=== PATIENT | female | born 1985 | race African-American/Black ===

== ENCOUNTER 2017-04-20 09:23 | Emergency (ER) | payer OTHER ==
[2017-04-20] MEDS ORDERED: Ondansetron HCl/PF 4 MG/2 ML Vial ONE (10:05)
== END 2017-04-20 10:34 | disposition home or self-care (01) ==
LOC: ERS 09:23
DX: R11.2 Nausea with vomiting, unspecified (principal); R10.9 Unspecified abdominal pain
CPT/HCPCS: 99283; J2405

== ENCOUNTER 2017-05-10 08:24 | Emergency (ER) | payer OTHER | END 2017-05-10 09:07 | disposition home or self-care (01) | LOC: ERS 08:24 | DX: R11.0 Nausea (principal); R51 Headache | CPT/HCPCS: 99283 ==

== ENCOUNTER 2017-05-11 08:54 | Emergency (ER) | payer OTHER, SELFPAY ==
[2017-05-11] MEDS ORDERED: Ondansetron HCl/PF 4 MG/2 ML Vial ONE (10:21)
[2017-05-11 10:40] LABS: #Eosinphils 0.1 thou/uL (0.0-0.7); #Lymphocytes 1.8 thou/uL (1.20-3.40); #Monocytes 0.5 thou/uL (0.11-0.59); %Basophils 0.1 % (0.0-1.0); %Eosinophils 0.6 % (0.0-10.0); %Lymphocytes 17.6 % (21.0-51.0); Hematocrit 43.2 % (36.0-47.0); Mean Platelet Volume 6.6 fL (7.4-10.4); White Blood Cell (WBC) Count 10.4 thou/uL (4.8-10.8)
[2017-05-11 10:54] LABS: ALT (SGPT) 14 U/L (8-55); AST (SGOT) 13 U/L (5-34); Alkaline Phosphatase 66 U/L (40-150); Anion Gap 14 mmol/L (10-20); BUN (Urea Nitrogen) 9 mg/dL (7.0-18.7); Bilirubin, Total 0.6 mg/dL (0.2-1.2); Calc. Creatinine Clearance 0 mL/min (70-130); Calcium 9.7 mg/dL (7.8-10.44); Carbon Dioxide 23 mmol/L (22-29); Chloride 104 mmol/L (98-107); Estimated GFR-MDRD Greater than 90; Globulin 3.9 g/dL (2.4-3.5); Lipase 38 U/L (8-78)
[2017-05-11 11:42] LABS: Bilirubin Negative (Negative); Blood, Urine Negative (Negative); Glucose, Urine (Dipstick) Negative (Negative); Ketone, Urine 15 mg/dL (Negative); Nitrite Negative (Negative); Protein, Urine (Dipstick) Negative (Neg-Trace)
== END 2017-05-11 13:45 | disposition home or self-care (01) ==
LOC: EDUNIT# 08:54 → ERS 08:54
DX: R11.2 Nausea with vomiting, unspecified (principal); E03.9 Hypothyroidism, unspecified
CPT/HCPCS: 80053; 81003; 83690; 84703; 85025; 96361; 96374; J2405

== ENCOUNTER 2017-05-25 11:59 | Emergency (ER) | payer OTHER, SELFPAY ==
[2017-05-25] MEDS ORDERED: Ondansetron ODT 4 MG TAB ONE (12:36)
[2017-05-25] MEDS ORDERED: Acetaminophen 325 MG TAB ONE (12:36)
== END 2017-05-25 12:43 | disposition home or self-care (01) ==
LOC: ERS 11:59
DX: R11.2 Nausea with vomiting, unspecified (principal)
CPT/HCPCS: 99283; Q0162

== ENCOUNTER 2017-05-30 10:13 | Emergency (ER) | payer SELFPAY | END 2017-05-30 10:34 | disposition left against medical advice (07) | LOC: ERS 10:13 | DX: Z53.21 Procedure and treatment not carried out due to patient leaving prior to being seen by health care provider (principal) ==

== ENCOUNTER 2017-06-15 08:47 | Emergency (ER) | payer OTHER, SELFPAY ==
[2017-06-15] MEDS ORDERED: Ondansetron ODT 4 MG TAB ONE (09:47)
== END 2017-06-15 10:10 | disposition home or self-care (01) ==
LOC: ERS 08:47
DX: R11.0 Nausea (principal); R51 Headache
CPT/HCPCS: 99283; Q0162

== ENCOUNTER 2017-07-04 10:11 | Emergency (ER) | payer OTHER | END 2017-07-04 11:17 | disposition home or self-care (01) | LOC: ERS 10:11 | DX: J11.1 Influenza due to unidentified influenza virus with other respiratory manifestations (principal) | CPT/HCPCS: 99283 ==

== ENCOUNTER 2017-07-04 15:43 | Emergency (ER) | payer OTHER ==
[2017-07-05 11:02] LABS: Anion Gap 11 mmol/L (-14-95); Lactate 1.26 mmol/L (0.50-2.20); POC Est. GFR-MDRD-African-Amer Greater than 60; POC Estimated GFR-MDRD Greater than 60; T. Carbon Dioxide 27.2 mmol/L (1.0-85.0); pH (Venous) 7.363 (7.35-7.45)
== END 2017-07-04 17:15 ==
LOC: ERS 15:43
DX: B34.9 Viral infection, unspecified (principal); R11.2 Nausea with vomiting, unspecified
CPT/HCPCS: 82330; 82435; 82565; 82803; 82947; 83605; 84132; 84295; 85014; 99284

== ENCOUNTER 2017-07-15 18:11 | Emergency (ER) | payer OTHER ==
[2017-07-15] MEDS ORDERED: Ibuprofen 200 MG TAB ONE (19:40)
[2017-07-15] MEDS ORDERED: Ibuprofen 100 MG/5 ML UDCUP ONE (19:41)
== END 2017-07-15 19:45 | disposition home or self-care (01) ==
LOC: ERS 18:11
DX: R53.1 Weakness (principal)

== ENCOUNTER 2017-07-16 16:52 | Emergency (ER) | payer OTHER ==
[2017-07-16 17:55] LABS: Bilirubin Negative (Negative); Blood, Urine Large (Negative); Clarity CLOUDY (Clear); Glucose, Urine (Dipstick) Negative (Negative); Leukocyte Trace (Negative); Nitrite Negative (Negative); Pregnancy Test - Urine (BHCG) Negative (Negative); Pregu Control Background? CLEAR/WHITE (CLR/WHITE); Pregu Control Bar Appear? YES (CONTROL BAR); Protein, Urine (Dipstick) Negative (Neg-Trace); Specific Gravity 1.033 (1.002-1.036); Specific Gravity, Urine 1.033 (1.002-1.036); Urobilinogen 0.2 mg/dL (0.2-1.0); pH, Urine 5.5 (5.0-9.0)
[2017-07-16 18:00] LABS: Bacteria/HPF 1+ HPF (None Seen); Hyaline Casts/LPF 4-6 HYALINE CAST LPF (0-3 Hyaline); Pathc Cast-AUWi Flag 0.94 (0-2.49); Yeast-AUWi Flag 125.7 (0-25.0)
[2017-07-16 18:09] LABS: Yeast-All Forms None Seen HPF (None Seen)
== END 2017-07-16 18:46 | disposition left against medical advice (07) ==
LOC: ERS 16:52
DX: Z53.21 Procedure and treatment not carried out due to patient leaving prior to being seen by health care provider (principal)
CPT/HCPCS: 81003; 81015; 81025; 99283

== ENCOUNTER 2017-07-21 12:29 | Emergency (ER) | payer OTHER ==
[2017-07-21] MEDS ORDERED: Ibuprofen 200 MG TAB ONE (12:57)
== END 2017-07-21 13:08 | disposition home or self-care (01) ==
LOC: ERS 12:29
DX: M79.621 Pain in right upper arm (principal); M79.662 Pain in left lower leg
CPT/HCPCS: 99283

== ENCOUNTER 2017-07-25 17:05 | Emergency (ER) | payer OTHER | END 2017-07-25 18:38 | disposition left against medical advice (07) | LOC: ERS 17:05 | DX: Z53.21 Procedure and treatment not carried out due to patient leaving prior to being seen by health care provider (principal) ==

== ENCOUNTER 2017-10-13 11:46 | Emergency (ER) | payer OTHER ==
[2017-10-13] MEDS ORDERED: Acetaminophen 500 MG TAB ONE (13:01)
[2017-10-13] MEDS ORDERED: Ondansetron ODT 4 MG TAB ONE (13:01)
[2017-10-13] MEDS ORDERED: Ketorolac Tromethamine 30 MG/ML VIAL ONE (13:01)
== END 2017-10-13 13:36 | disposition home or self-care (01) ==
LOC: ERS 11:46
DX: R51 Headache (principal)
CPT/HCPCS: 96372; J1885; Q0162

== ENCOUNTER 2017-10-19 11:23 | Emergency (ER) | payer OTHER ==
[2017-10-19] MEDS ORDERED: Ondansetron ODT 4 MG TAB ONE (12:09)
[2017-10-19] MEDS ORDERED: Ketorolac Tromethamine 30 MG/ML VIAL ONE (12:09)
== END 2017-10-19 12:42 | disposition home or self-care (01) ==
LOC: ERS 11:23
DX: R51 Headache (principal); F17.200 Nicotine dependence, unspecified, uncomplicated
CPT/HCPCS: 96372; J1885; Q0162

== ENCOUNTER 2017-10-24 08:47 | Emergency (ER) | payer OTHER ==
[2017-10-24] MEDS ORDERED: Dexamethasone 4 MG TAB ONE (09:15)
[2017-10-24] MEDS ORDERED: Dexamethasone 4 mg/ml Vial ONE (09:17)
== END 2017-10-24 09:37 | disposition home or self-care (01) ==
LOC: ERS 08:47
DX: J02.9 Acute pharyngitis, unspecified (principal); F17.200 Nicotine dependence, unspecified, uncomplicated
CPT/HCPCS: 99283; J1100; J8540

== ENCOUNTER 2017-11-01 11:24 | Emergency (ER) | payer OTHER ==
[2017-11-01 11:59] LABS: #Eosinphils 0.2 thou/uL (0.0-0.7); #Lymphocytes 2.7 thou/uL (1.20-3.40); #Monocytes 0.6 thou/uL (0.11-0.59); #Neutrophils 4.3 thou/uL (1.40-6.50); %Basophils 0.3 % (0.0-1.0); %Monocytes 7.2 % (0.0-10.0); %Neutrophils 55.5 % (42.0-75.0); Hemoglobin 13.3 g/dL (12.0-16.0); Mean Corpuscular HGB CONC 31.8 g/dL (32.0-36.0); Mean Corpuscular Hemoglobin 23.6 pg (27.0-31.0); Mean Corpuscular Volume 74.1 fl (81.0-99.0); Platelet Count 562 thou/uL (130-400); RBC Distribution Width 15.5 % (11.5-14.5); Red Blood Cell (RBC) Count 5.63 mill/uL (4.20-5.40); White Blood Cell (WBC) Count 7.8 thou/uL (4.8-10.8)
[2017-11-01 12:15] LABS: Bilirubin Small (Negative); Blood, Urine Large (Negative); Clarity CLOUDY (Clear); Glucose, Urine (Dipstick) Negative (Negative); Leukocyte Small (Negative); Nitrite Negative (Negative); Protein, Urine (Dipstick) 30 mg/dL (Neg-Trace); Urobilinogen 0.2 mg/dL (0.2-1.0); pH, Urine 5.5 (5.0-9.0)
[2017-11-01 12:16] LABS: Hypochromia SLIGHT = 6-15 cells (100X) (0-5/hpf); MDiff Complete? YES; Microcytosis MODERATE=15-30 cells (100X) (0-5/hpf); Polychromasia SLIGHT = 2-3 cells (100X) (0-2/hpf)
[2017-11-01 12:19] LABS: Pregnancy Test - Urine (BHCG) Negative (Negative); Pregu Control Background? CLEAR/WHITE (CLR/WHITE); Pregu Control Bar Appear? YES (CONTROL BAR)
[2017-11-01 12:29] LABS: Bacteria/HPF Rare-Few HPF (None Seen); Hyaline Casts/LPF 0-3 HYALINE CAST LPF (0-3 Hyaline); Pathc Cast-AUWi Flag 0.29 (0-2.49); RBC/HPF GREATER THAN 50-TNTC HPF (0-3)
[2017-11-01 12:59] LABS: ALT (SGPT) 19 U/L (8-55); AST (SGOT) 14 U/L (5-34); Albumin 4.2 g/dL (3.5-5.0); Alkaline Phosphatase 62 U/L (40-150); Anion Gap 12 mmol/L (10-20); BUN (Urea Nitrogen) 9 mg/dL (7.0-18.7); Bilirubin, Total 0.3 mg/dL (0.2-1.2); Calc. Creatinine Clearance 0 mL/min (70-130); Calcium 9.5 mg/dL (7.8-10.44); Carbon Dioxide 25 mmol/L (22-29); Chloride 106 mmol/L (98-107); Estimated GFR-MDRD Greater than 90; Globulin 3.8 g/dL (2.4-3.5); Glucose 79 mg/dL (70-105); Potassium 3.8 mmol/L (3.5-5.1); Sodium 139 mmol/L (136-145)
== END 2017-11-01 12:57 | disposition home or self-care (01) ==
LOC: ERS 11:24
DX: N39.0 Urinary tract infection, site not specified (principal); F17.210 Nicotine dependence, cigarettes, uncomplicated
CPT/HCPCS: 36415; 80053; 81003; 81015; 81025; 85025; 87086

== ENCOUNTER 2017-11-01 19:27 | Emergency (ER) | payer OTHER ==
[2017-11-01 19:58] LABS: Bilirubin Negative (Negative); Blood, Urine Large (Negative); Clarity TURBID (Clear); Glucose, Urine (Dipstick) Negative (Negative); Leukocyte Small (Negative); Nitrite Negative (Negative); Protein, Urine (Dipstick) 30 mg/dL (Neg-Trace); Specific Gravity, Urine 1.028 (1.002-1.036)
[2017-11-01 19:59] LABS: Bacteria/HPF None Seen HPF (None Seen); Hyaline Casts/LPF 7-10 HYALINE CAST LPF (0-3 Hyaline); RBC/HPF GREATER THAN 50-TNTC HPF (0-3)
[2017-11-01] MEDS ORDERED: Ibuprofen 100 MG/5 ML UDCUP ONE (20:01)
[2017-11-01 20:06] LABS: Pathc Cast-AUWi Flag 2.71 (0-2.49)
[2017-11-01 20:21] LABS: Other Casts/LPF None Seen LPF (0-3 Hyaline)
== END 2017-11-01 20:00 | disposition home or self-care (01) ==
LOC: ERS 19:27
DX: N94.6 Dysmenorrhea, unspecified (principal)
CPT/HCPCS: 36415; 80053; 81003; 81015; 81025; 85025; 87086; 99284

== ENCOUNTER 2017-11-26 13:33 | Emergency (ER) | payer OTHER ==
[2017-11-26 14:10] LABS: #Eosinphils 0.2 thou/uL (0.0-0.7); #Lymphocytes 2.9 thou/uL (1.20-3.40); #Monocytes 0.6 thou/uL (0.11-0.59); #Neutrophils 5.5 thou/uL (1.40-6.50); %Basophils 0.3 % (0.0-1.0); %Eosinophils 2.1 % (0.0-10.0); %Lymphocytes 31.9 % (21.0-51.0); %Monocytes 6.4 % (0.0-10.0); %Neutrophils 59.3 % (42.0-75.0); Hemoglobin 12.6 g/dL (12.0-16.0); Mean Corpuscular HGB CONC 32.5 g/dL (32.0-36.0); Mean Corpuscular Volume 73.9 fl (81.0-99.0); Mean Platelet Volume 6.7 fL (7.4-10.4); Platelet Count 563 thou/uL (130-400); RBC Distribution Width 15.4 % (11.5-14.5); Red Blood Cell (RBC) Count 5.25 mill/uL (4.20-5.40); White Blood Cell (WBC) Count 9.2 thou/uL (4.8-10.8)
[2017-11-26 14:13] LABS: Bilirubin Negative (Negative); Blood, Urine Large (Negative); Clarity CLOUDY (Clear); Glucose, Urine (Dipstick) Negative (Negative); Leukocyte Moderate (Negative); Nitrite Negative (Negative); Protein, Urine (Dipstick) Trace mg/dL (Neg-Trace); Specific Gravity, Urine 1.024 (1.002-1.036)
[2017-11-26 14:16] LABS: Pregnancy Test - Urine (BHCG) Negative (Negative); Pregu Control Background? CLEAR/WHITE (CLR/WHITE); Pregu Control Bar Appear? YES (CONTROL BAR); Specific Gravity 1.024 (1.002-1.036)
[2017-11-26 14:23] LABS: RBC/HPF GREATER THAN 50-TNTC HPF (0-3)
[2017-11-26 14:24] LABS: Bacteria/HPF None Seen HPF (None Seen); Hyaline Casts/LPF NONE SEEN LPF (0-3 Hyaline); Squamous Epithelial 0-3 HPF (0-3)
== END 2017-11-26 14:55 | disposition home or self-care (01) ==
LOC: ERS 13:33
DX: N93.9 Abnormal uterine and vaginal bleeding, unspecified (principal)
CPT/HCPCS: 36415; 81003; 81015; 81025; 85025; 99283

== ENCOUNTER 2017-12-07 17:31 | Emergency (ER) | payer OTHER ==
[2017-12-07 19:40] LABS: Pregnancy Test - Urine (BHCG) Negative (Negative); Pregu Control Background? CLEAR/WHITE (CLR/WHITE); Pregu Control Bar Appear? YES (CONTROL BAR); Specific Gravity 1.029 (1.002-1.036)
[2017-12-07] MEDS ORDERED: Ketorolac Tromethamine 60 MG/2 ML VIAL ONE (20:08)
== END 2017-12-07 20:21 | disposition home or self-care (01) ==
LOC: ERS 17:31
DX: J30.9 Allergic rhinitis, unspecified (principal)
CPT/HCPCS: 81025; 96372; J1885

== ENCOUNTER 2017-12-13 11:21 | Emergency (ER) | payer OTHER ==
[2017-12-13] MEDS ORDERED: Ketorolac Tromethamine 60 MG/2 ML VIAL ONE (11:43)
== END 2017-12-13 12:52 | disposition home or self-care (01) ==
LOC: ERS 11:21
DX: R51 Headache (principal)
CPT/HCPCS: 96372; J1885

== ENCOUNTER 2017-12-21 19:26 | Emergency (ER) | payer OTHER ==
[2017-12-21] MEDS ORDERED: Ketorolac Tromethamine 30 MG/ML VIAL ONE (19:40)
== END 2017-12-21 19:47 | disposition home or self-care (01) ==
LOC: ERS 19:26
DX: R11.2 Nausea with vomiting, unspecified (principal)
CPT/HCPCS: 96374; J1885

== ENCOUNTER 2017-12-31 18:10 | Emergency (ER) | payer OTHER ==
[2017-12-31 19:05] LABS: Bilirubin Negative (Negative); Blood, Urine Negative (Negative); Clarity CLOUDY (Clear); Glucose, Urine (Dipstick) Negative (Negative); Leukocyte Negative (Negative); Nitrite Negative (Negative); Protein, Urine (Dipstick) Negative (Neg-Trace); Specific Gravity, Urine 1.028 (1.002-1.036); pH, Urine 5.5 (5.0-9.0)
[2017-12-31 19:18] LABS: Pregnancy Test - Urine (BHCG) Negative (Negative); Pregu Control Background? CLEAR/WHITE (CLR/WHITE); Pregu Control Bar Appear? YES (CONTROL BAR); Specific Gravity 1.028 (1.002-1.036)
[2017-12-31] MEDS ORDERED: Ketorolac Tromethamine 60 MG/2 ML VIAL ONE (19:38)
== END 2017-12-31 19:59 | disposition home or self-care (01) ==
LOC: ERS 18:10
DX: R51 Headache (principal); R11.0 Nausea; E03.9 Hypothyroidism, unspecified
CPT/HCPCS: 81003; 81025; 96372; J1885

== ENCOUNTER 2018-01-09 20:57 | Emergency (ER) ==
[2018-01-09] MEDS ORDERED: Ketorolac Tromethamine 60 MG/2 ML VIAL ONE (21:07)
== END 2018-01-09 21:20 | disposition home or self-care (01) ==
LOC: ERS 20:57 → MERGE 20:57 → ERS 21:20
DX: G89.29 Other chronic pain (principal); M25.562 Pain in left knee
CPT/HCPCS: 96372; J1885

== ENCOUNTER 2018-01-17 19:46 | Emergency (ER) | payer OTHER ==
[2018-01-17] MEDS ORDERED: Ondansetron HCl/PF 4 MG/2 ML Vial ONE (19:57)
[2018-01-17] MEDS ORDERED: Ketorolac Tromethamine 30 MG/ML VIAL ONE (19:57)
[2018-01-17] MEDS ORDERED: Acetaminophen 500 MG TAB ONE (20:01)
== END 2018-01-17 20:14 | disposition home or self-care (01) ==
LOC: ERS 19:46
DX: R51 Headache (principal); E03.9 Hypothyroidism, unspecified
CPT/HCPCS: 96374; 96375; J1885; J2405

== ENCOUNTER 2018-03-25 12:46 | Emergency (ER) | payer OTHER ==
[2018-03-25] MEDS ORDERED: Ketorolac Tromethamine 30 MG/ML VIAL ONE (14:21)
== END 2018-03-25 14:28 | disposition home or self-care (01) ==
LOC: ERS 12:46
DX: G89.29 Other chronic pain (principal); R51 Headache; E03.9 Hypothyroidism, unspecified
CPT/HCPCS: 96372; J1885

== ENCOUNTER 2018-05-09 00:22 | Emergency (ER) | payer OTHER ==
[2018-05-09] MEDS ORDERED: Acetaminophen 500 MG TAB ONE (01:00)
[2018-05-09] MEDS ORDERED: Ketorolac Tromethamine 30 MG/ML VIAL ONE (01:00)
--- NOTE | 2018-05-09 09:11 | RAD ---
FOUR VIEWS OF THE SKULL: COMPARISON: None. HISTORY: Fall with head trauma and head pain. FINDINGS: Four views of the skull show no evidence of a displaced calvarial fracture. The visualized paranasal sinuses are well aerated. The mastoid air cells are well aerated. IMPRESSION: No evidence of calvarial fracture. POS: [facility]
== END 2018-05-09 01:20 | disposition home or self-care (01) ==
LOC: ERS 00:22
DX: S09.90XA Unspecified injury of head, initial encounter (principal); E03.9 Hypothyroidism, unspecified; W20.8XXA Other cause of strike by thrown, projected or falling object, initial encounter
CPT/HCPCS: 70260; 96372; J1885

== ENCOUNTER 2018-05-27 16:04 | Emergency (ER) | payer OTHER | END 2018-05-27 18:40 | disposition home or self-care (01) | LOC: SCSER 16:04 | DX: K52.9 Noninfective gastroenteritis and colitis, unspecified (principal); E03.9 Hypothyroidism, unspecified | CPT/HCPCS: 99283 ==

== ENCOUNTER 2018-06-09 20:24 | Emergency (ER) | payer OTHER ==
[2018-06-09 21:33] LABS: #Eosinphils 0.3 thou/uL (0.0-0.7); #Lymphocytes 3.4 thou/uL (1.20-3.40); #Monocytes 0.6 thou/uL (0.11-0.59); #Neutrophils 4.9 thou/uL (1.40-6.50); %Basophils 0.2 % (0.0-1.0); %Eosinophils 2.7 % (0.0-10.0); %Lymphocytes 36.8 % (21.0-51.0); %Monocytes 6.1 % (0.0-10.0); %Neutrophils 54.2 % (42.0-75.0); Hemoglobin 12.9 g/dL (12.0-16.0); Mean Corpuscular HGB CONC 32.3 g/dL (32.0-36.0); Mean Corpuscular Hemoglobin 23.8 pg (27.0-31.0); Mean Corpuscular Volume 73.7 fL (78.0-98.0); Mean Platelet Volume 7.1 fL (7.4-10.4); Platelet Count 588 thou/uL (130-400); RBC Distribution Width 15.7 % (11.5-14.5); Red Blood Cell (RBC) Count 5.44 mill/uL (4.20-5.40); White Blood Cell (WBC) Count 9.1 thou/uL (4.8-10.8)
[2018-06-09 21:35] LABS: BHCG - Serum Negative (NEGATIVE); Pregs Control Background? CLEAR/WHITE (CLR/WHITE); Pregs Control Bar Appear? YES (CONTROL BAR)
--- NOTE | 2018-06-09 22:37 | ULT ---
PELVIC ULTRASOUND: 06/09/18 COMPARISON: None. HISTORY: Pelvic pain and cramping. Vaginal bleeding. TECHNIQUE: Multiplanar fraser scale and color doppler images were obtained in a transabdominal pelvic ultrasound. Spectral analysis of the doppler waveforms of the ovaries were performed. FINDINGS: The uterus is normal size and appearance without focal abnormality. The endometrial stripe is normal measuring 6 mm. No free fluid is seen in the pelvis. Both ovaries are normal in size and appearance and demonstrate n ormal internal flow. IMPRESSION: Unremarkable pelvic ultrasound. POS: [facility]
[2018-06-11 21:13] LABS: Chlamydia by PCR Not Detected (NotDetected); GC by PCR Not Detected (NotDetected)
== END 2018-06-09 22:57 | disposition home or self-care (01) ==
LOC: ERS 20:24
DX: N93.9 Abnormal uterine and vaginal bleeding, unspecified (principal); E03.9 Hypothyroidism, unspecified; I50.9 Heart failure, unspecified
CPT/HCPCS: 36415; 76856; 84703; 85025; 87480; 87491; 87510; 87591; 87660; 93976; 99284

== ENCOUNTER 2018-07-07 15:06 | Emergency (ER) | payer OTHER | END 2018-07-07 15:55 | disposition home or self-care (01) | LOC: ERS 15:06 | DX: R19.7 Diarrhea, unspecified (principal); E03.9 Hypothyroidism, unspecified; D50.9 Iron deficiency anemia, unspecified | CPT/HCPCS: 99284 ==

== ENCOUNTER 2018-07-08 21:20 | Emergency (ER) | payer OTHER | END 2018-07-08 21:38 | disposition home or self-care (01) | LOC: ERS 21:20 | DX: K03.81 Cracked tooth (principal); E03.9 Hypothyroidism, unspecified; D50.0 Iron deficiency anemia secondary to blood loss (chronic); Z79.899 Other long term (current) drug therapy | CPT/HCPCS: 99283 ==

== ENCOUNTER 2018-07-13 14:27 | Emergency (ER) | payer OTHER | END 2018-07-13 15:02 | disposition home or self-care (01) | LOC: ERS 14:27 | DX: R10.9 Unspecified abdominal pain (principal); R11.0 Nausea; E03.9 Hypothyroidism, unspecified; D50.9 Iron deficiency anemia, unspecified | CPT/HCPCS: 99284 ==

== ENCOUNTER 2018-07-27 22:04 | Emergency (ER) | payer OTHER ==
[2018-07-27] MEDS ORDERED: Ketorolac Tromethamine 30 MG/ML VIAL ONE (22:30)
== END 2018-07-27 22:45 | disposition home or self-care (01) ==
LOC: ERS 22:04
DX: M54.5 Low back pain (principal); R10.9 Unspecified abdominal pain; E03.9 Hypothyroidism, unspecified; D50.0 Iron deficiency anemia secondary to blood loss (chronic)
CPT/HCPCS: 96372; J1885

== ENCOUNTER 2018-09-14 17:20 | Emergency (ER) | payer OTHER | END 2018-09-14 17:39 | disposition left against medical advice (07) | LOC: ERS 17:20 | DX: Z53.21 Procedure and treatment not carried out due to patient leaving prior to being seen by health care provider (principal) ==

== ENCOUNTER 2018-11-01 18:33 | Emergency (ER) | payer OTHER | END 2018-11-01 18:51 | disposition home or self-care (01) | LOC: ERS 18:33 | DX: L02.414 Cutaneous abscess of left upper limb (principal); L03.114 Cellulitis of left upper limb | CPT/HCPCS: 99283 ==

== ENCOUNTER 2018-11-05 14:53 | Emergency (ER) | payer OTHER ==
[2018-11-05] MEDS ORDERED: Ketorolac Tromethamine 30 MG/ML VIAL ONE (15:27)
== END 2018-11-05 15:40 | disposition home or self-care (01) ==
LOC: ERS 14:53
DX: R51 Headache (principal)
CPT/HCPCS: 96372; J1885

== ENCOUNTER 2018-11-27 17:46 | Emergency (ER) | payer OTHER ==
[2018-11-27] MEDS ORDERED: Ketorolac Tromethamine 60 MG/2 ML VIAL ONE (19:10)
== END 2018-11-27 19:14 | disposition home or self-care (01) ==
LOC: ERS 17:46
DX: M62.838 Other muscle spasm (principal)
CPT/HCPCS: 96372; J1885

== ENCOUNTER 2018-12-10 06:14 | Emergency (ER) | payer OTHER ==
[2018-12-10] MEDS ORDERED: Ibuprofen 800 MG TAB ONE (06:20)
== END 2018-12-10 06:30 | disposition home or self-care (01) ==
LOC: ERS 06:14
DX: K03.81 Cracked tooth (principal); E05.90 Thyrotoxicosis, unspecified without thyrotoxic crisis or storm
CPT/HCPCS: 99281

== ENCOUNTER 2018-12-13 23:31 | Emergency (ER) | payer OTHER ==
[2018-12-14] MEDS ORDERED: Ketorolac Tromethamine 60 MG/2 ML VIAL ONE (00:16)
== END 2018-12-14 00:38 | disposition home or self-care (01) ==
LOC: ERS 23:31
DX: R51 Headache (principal)
CPT/HCPCS: 96372; J1885

== ENCOUNTER 2018-12-17 01:47 | Emergency (ER) | payer OTHER ==
[2018-12-17] MEDS ORDERED: Ketorolac Tromethamine 60 MG/2 ML VIAL ONE (02:00)
== END 2018-12-17 02:33 | disposition home or self-care (01) ==
LOC: ERS 01:47
DX: M54.2 Cervicalgia (principal)
CPT/HCPCS: 96372; J1885

== ENCOUNTER 2019-01-04 00:16 | Emergency (ER) | payer OTHER ==
[2019-01-04] MEDS ORDERED: Ketorolac Tromethamine 30 MG/ML VIAL ONE (00:33)
[2019-01-04] MEDS ORDERED: Silver Sulfadiazine 1% Cream 50 GM JAR ONE (00:33)
== END 2019-01-04 00:45 | disposition home or self-care (01) ==
LOC: ERS 00:16
DX: T21.12XA Burn of first degree of abdominal wall, initial encounter (principal); F31.9 Bipolar disorder, unspecified; F20.9 Schizophrenia, unspecified; X12.XXXA Contact with other hot fluids, initial encounter
CPT/HCPCS: 16020; 96374; J1885

== ENCOUNTER 2019-05-27 23:10 | Emergency (ER) | payer OTHER ==
[2019-05-28] MEDS ORDERED: Ondansetron ODT 8 MG TAB ONE
[2019-05-28] MEDS ORDERED: Ketorolac Tromethamine 60 MG/2 ML VIAL ONE (00:31)
== END 2019-05-28 00:53 | disposition home or self-care (01) ==
LOC: ERS 23:10
DX: R11.2 Nausea with vomiting, unspecified (principal); R51 Headache; E05.90 Thyrotoxicosis, unspecified without thyrotoxic crisis or storm; F31.9 Bipolar disorder, unspecified; F20.9 Schizophrenia, unspecified
CPT/HCPCS: 96372; 99283; J1885

== ENCOUNTER 2019-08-27 18:38 | Emergency (ER) | payer SELFPAY ==
[2019-08-27] MEDS ORDERED: Ketorolac Tromethamine 60 MG/2 ML VIAL ONE (19:50)
--- NOTE | 2019-08-27 19:59 | RAD ---
XR Chest Pa Lat STANDARD HISTORY: Headache and neck pain, chest pain COMPARISON: None FINDINGS: The heart size is normal. The lungs are well expanded without focal areas of consolidation, pneumothorax or pleural effusions. IMPRESSION: No radiographic evidence of acute cardiopulmonary process.
[2019-08-27 20:55] LABS: Hemoglobin 12.7 g/dL (12.0-16.0); Mean Corpuscular HGB CONC 33.6 g/dL (32.0-36.0); Mean Corpuscular Hemoglobin 23.5 pg (27.0-31.0); Mean Corpuscular Volume 69.9 fL (78.0-98.0); RBC Distribution Width 15.5 % (11.5-14.5); Red Blood Cell (RBC) Count 5.39 mill/uL (4.20-5.40)
[2019-08-27 21:01] LABS: ALT (SGPT) 18 U/L (8-55); AST (SGOT) 13 U/L (5-34); Albumin 3.9 g/dL (3.5-5.0); Alkaline Phosphatase 79 U/L (40-110); Anion Gap 14 mmol/L (10-20); BUN (Urea Nitrogen) 10 mg/dL (7.0-18.7); Bilirubin, Total 0.2 mg/dL (0.2-1.2); Calc. Creatinine Clearance 0 mL/min (70-130); Calcium 9.3 mg/dL (7.8-10.44); Carbon Dioxide 22 mmol/L (22-29); Chloride 106 mmol/L (98-107); Estimated GFR-MDRD Greater than 90; Globulin 3.1 g/dL (2.4-3.5); Glucose 84 mg/dL (70-105); Potassium 3.9 mmol/L (3.5-5.1); Sodium 138 mmol/L (136-145)
[2019-08-27 21:09] LABS: #Basophils 0.1 thou/uL (0.0-0.2); #Eosinphils 0.2 thou/uL (0.0-0.7); #Lymphocytes 3.6 thou/uL (1.20-3.40); #Monocytes 0.7 thou/uL (0.11-0.59); #Neutrophils 6.2 thou/uL (1.40-6.50); %Basophils 0.5 % (0.0-1.0); %Eosinophils 1.9 % (0.0-10.0); %Lymphocytes 33.8 % (21.0-51.0); %Neutrophils 57.8 % (42.0-75.0); Anisocytosis SLIGHT = 6-15 cells (100X) (0-5/hpf); MDiff Complete? YES; Mean Platelet Volume 7.6 fL (7.4-10.4); Microcytosis SLIGHT = 6-15 cells (100X) (0-5/hpf); Platelet Count 558 thou/uL (130-400); White Blood Cell (WBC) Count 10.7 thou/uL (4.8-10.8)
== END 2019-08-27 21:10 | disposition left against medical advice (07) ==
LOC: ERS 18:38
DX: R07.9 Chest pain, unspecified (principal); R51 Headache; E05.90 Thyrotoxicosis, unspecified without thyrotoxic crisis or storm; F31.9 Bipolar disorder, unspecified; F20.9 Schizophrenia, unspecified
CPT/HCPCS: 36415; 71046; 80053; 84484; 85025; 93005; 96372; J1885

== ENCOUNTER 2020-03-10 16:17 | Emergency (ER) | payer MEDICARE, MEDICAID ==
[2020-03-10] MEDS ORDERED: Acetaminophen 500 MG TAB ONE (16:42)
[2020-03-10] MEDS ORDERED: diphenhydrAMINE 50 MG/ML VIAL ONE (16:42)
[2020-03-10] MEDS ORDERED: Ketorolac Tromethamine 30 MG/ML VIAL ONE (16:42)
[2020-03-10] MEDS ORDERED: Metoclopramide HCl 10 MG/2 ML VIAL ONE (16:42)
[2020-03-10] MEDS ORDERED: Magnesium 2 GM/50 ML BAG (IN WATER) ONE (16:42)
[2020-03-10 17:07] LABS: Bacteria/HPF 2+ HPF (None Seen); Bilirubin Negative (Negative); Blood, Urine Negative (Negative); Clarity Clear (Clear); Glucose, Urine (Dipstick) Normal (Negative); Ketone, Urine Negative (Negative); Leukocyte 250 Leu/uL (Negative); Nitrite Negative (Negative); Protein, Urine (Dipstick) Negative (Neg-Trace); RBC/HPF 0-3 HPF (0-3); Specific Gravity, Urine 1.029 (1.002-1.036); Urobilinogen Normal mg/dL (Less than 2); pH, Urine 5.5 (5.0-9.0)
[2020-03-10 17:09] LABS: Pregnancy Test - Urine (BHCG) Negative (Negative)
[2020-03-10 17:10] LABS: Pregu Control Background? CLEAR/WHITE (CLR/WHITE); Pregu Control Bar Appear? YES (CONTROL BAR); Specific Gravity 1.029 (1.002-1.036)
== END 2020-03-10 18:35 | disposition home or self-care (01) ==
LOC: ERS 16:17
DX: N39.0 Urinary tract infection, site not specified (principal); R51 Headache
CPT/HCPCS: 81003; 81015; 81025; 96365; 96375; J1200; J1885; J2765; J3475

== ENCOUNTER 2020-07-30 14:59 | Outpatient (CLI) | payer MEDICARE, MEDICAID ==
--- NOTE | 2020-07-30 16:12 | ULT ---
PELVIC ULTRASOUND: 07/30/20 Transabdominal and endovaginal ultrasound of pelvis performed. INDICATIONS: Abnormal uterine bleeding. The uterus has an unremarkable ultrasound appearance. The uterine measurements recorded at 8.0 x 4.1 x 4.3 cm. Mild retroflexion. Endometrial stripe upper normal measured at 8 mm. Both ovaries were identified. There are bilateral follicular cysts. Largest cyst on the right ovary m easures up to 1.3 cm and the largest cyst on the left ovary measures 1.0 cm. No free fluid. Blood flow was demonstrated to both ovaries with color Doppler and spectral analysis. IMPRESSION: Unremarkable pelvic ultrasound. POS: OFF
== END 2020-07-30 15:00 | disposition home or self-care (01) ==
LOC: BICULT 14:59
PROVIDERS: ATTEND Nurse Practitioner
DX: N93.9 Abnormal uterine and vaginal bleeding, unspecified (principal); N92.0 Excessive and frequent menstruation with regular cycle
CPT/HCPCS: 76856

== ENCOUNTER 2020-08-22 21:53 | Emergency (ER) | payer MEDICAID, MEDICARE, OTHER ==
[2020-08-22] MEDS ORDERED: Ketorolac Tromethamine 30 MG/ML VIAL ONE (22:07)
== END 2020-08-22 23:16 | disposition home or self-care (01) ==
LOC: ERS 21:53
DX: S80.02XA Contusion of left knee, initial encounter (principal); S90.31XA Contusion of right foot, initial encounter; R51.9 Headache, unspecified; H53.149 Visual discomfort, unspecified; W22.8XXA Striking against or struck by other objects, initial encounter; Y92.512 Supermarket, store or market as the place of occurrence of the external cause
CPT/HCPCS: 96372; J1885

== ENCOUNTER 2020-08-31 08:43 | Emergency (ER) | payer MEDICARE, OTHER | END 2020-08-31 09:38 | disposition home or self-care (01) | LOC: ERS 08:43 | DX: R14.0 Abdominal distension (gaseous) (principal); R53.81 Other malaise | CPT/HCPCS: 99281 ==

== ENCOUNTER 2020-10-04 11:47 | Emergency (ER) | payer MEDICARE, OTHER | END 2020-10-04 13:16 | disposition home or self-care (01) | LOC: ERS 11:47 | DX: R22.43 Localized swelling, mass and lump, lower limb, bilateral (principal); I10 Essential (primary) hypertension; Z79.899 Other long term (current) drug therapy | CPT/HCPCS: 99281 ==

== ENCOUNTER 2020-11-30 23:34 | Emergency (ER) | payer MEDICARE, OTHER ==
[2020-12-01 00:04] LABS: Bilirubin Negative (Negative); Blood, Urine Negative (Negative); Clarity Clear (Clear); Glucose, Urine (Dipstick) Normal (Negative); Ketone, Urine Negative (Negative); Leukocyte Negative Leu/uL (Negative); Nitrite Negative (Negative); Protein, Urine (Dipstick) Negative (Neg-Trace); Specific Gravity, Urine 1.024 (1.002-1.036)
[2020-12-01 00:10] LABS: Pregnancy Test - Urine (BHCG) Negative (Negative); Pregu Control Background? CLEAR/WHITE (CLR/WHITE); Pregu Control Bar Appear? YES (CONTROL BAR); Specific Gravity 1.024 (1.002-1.036)
== END 2020-12-01 00:36 | disposition home or self-care (01) ==
LOC: ERS 23:34
DX: R42 Dizziness and giddiness (principal); R10.9 Unspecified abdominal pain; I10 Essential (primary) hypertension
CPT/HCPCS: 81003; 81025; 93005

== ENCOUNTER 2021-01-18 00:01 | Emergency (ER) | payer MEDICARE, OTHER | END 2021-01-18 00:20 | disposition left against medical advice (07) | LOC: ERS 00:01 | DX: Z53.21 Procedure and treatment not carried out due to patient leaving prior to being seen by health care provider (principal) ==

== ENCOUNTER 2021-01-18 02:27 | Emergency (ER) | payer MEDICARE, OTHER ==
[2021-01-18] MEDS ORDERED: Acetaminophen 500 MG TAB ONE (03:53)
[2021-01-18] MEDS ORDERED: Ketorolac Tromethamine 30 MG/ML VIAL ONE (03:53)
[2021-01-18] MEDS ORDERED: diphenhydrAMINE 50 MG/ML VIAL ONE (04:03)
[2021-01-18] MEDS ORDERED: Metoclopramide HCl 10 MG TAB ONE (04:03)
== END 2021-01-18 04:13 | disposition home or self-care (01) ==
LOC: ERS 02:27
DX: R51.9 Headache, unspecified (principal)
CPT/HCPCS: 96372; 99283; J1200; J1885

== ENCOUNTER 2021-01-26 21:45 | Emergency (ER) | payer MEDICARE, OTHER | END 2021-01-26 23:43 | disposition home or self-care (01) | LOC: ERS 21:45 | DX: R51.9 Headache, unspecified (principal); N93.9 Abnormal uterine and vaginal bleeding, unspecified | CPT/HCPCS: 81003; 81015; 96372; 99284; J1885 ==

== ENCOUNTER 2021-05-25 20:58 | Emergency (ER) | payer OTHER ==
[2021-05-25] MEDS ORDERED: Ketorolac Tromethamine 30 MG/ML VIAL ONE (22:32)
== END 2021-05-25 22:51 | disposition home or self-care (01) ==
LOC: ERS 20:58
DX: R51.9 Headache, unspecified (principal)
CPT/HCPCS: 96372; 99281; J1885

== ENCOUNTER 2021-12-16 23:40 | Emergency (ER) | payer MEDICARE, OTHER | END 2021-12-17 00:27 | disposition home or self-care (01) | LOC: ERS 23:40 | DX: K00.6 Disturbances in tooth eruption (principal) | CPT/HCPCS: 99283 ==

== ENCOUNTER 2022-02-25 18:45 | Emergency (ER) | payer OTHER ==
[2022-02-25 19:29] LABS: #Eosinphils 0.4 thou/uL (0.0-0.7); #Lymphocytes 2.5 thou/uL (1.20-3.40); #Monocytes 0.6 thou/uL (0.11-0.59); #Neutrophils 6.3 thou/uL (1.40-6.50); %Basophils 0.3 % (0.0-1.0); %Eosinophils 3.7 % (0.0-10.0); %Monocytes 5.8 % (0.0-10.0); %Neutrophils 64.2 % (42.0-75.0); Hemoglobin 12.5 g/dL (12.0-16.0); Mean Corpuscular Hemoglobin 22.4 pg (27.0-31.0); Mean Corpuscular Volume 72.3 fL (78.0-98.0); Mean Platelet Volume 7.2 fL (7.4-10.4); Platelet Count 614 thou/uL (130-400); RBC Distribution Width 16.3 % (11.5-14.5); Red Blood Cell (RBC) Count 5.58 mill/uL (4.20-5.40); White Blood Cell (WBC) Count 9.8 thou/uL (4.8-10.8)
[2022-02-25 19:37] LABS: BHCG - Serum Negative (NEGATIVE); Pregs Control Background? CLEAR/WHITE (CLR/WHITE); Pregs Control Bar Appear? YES (CONTROL BAR)
[2022-02-25 19:38] LABS: Bilirubin Negative (Negative); Blood, Urine 3+ (Negative); Clarity Extra Turbid (Clear); Glucose, Urine (Dipstick) Normal (Negative); Ketone, Urine Trace mg/dL (Negative); Leukocyte 25 Leu/uL (Negative); Mucous/LPF 1+ LPF (<2+); Nitrite Negative (Negative); Protein, Urine (Dipstick) 30 mg/dL (Neg-Trace); RBC/HPF Greater than 50 HPF (0-3); Specific Gravity, Urine 1.032 (1.002-1.036); Squamous Epithelial 0-3 HPF (0-3); Urobilinogen 3 mg/dL (Less than 2); pH, Urine 5.5 (5.0-9.0)
[2022-02-25 19:45] LABS: MDiff Complete? YES; Microcytosis SLIGHT = 6-15 cells (100X) (0-5/hpf); Platelet Morphology Comment Appears Increased
[2022-02-25 19:49] LABS: ALT (SGPT) 23 U/L (8-55); AST (SGOT) 14 U/L (5-34); Alkaline Phosphatase 71 U/L (40-110); Anion Gap 16 mmol/L (10-20); BUN (Urea Nitrogen) 8 mg/dL (7.0-18.7); Bilirubin, Total 0.3 mg/dL (0.2-1.2); Calc. Creatinine Clearance 0 mL/min (70-130); Calcium 9.2 mg/dL (7.8-10.44); Carbon Dioxide 23 mmol/L (22-29); Chloride 105 mmol/L (98-107); Estimated GFR 102; Glucose 90 mg/dL (70-105); Potassium 3.4 mmol/L (3.5-5.1); Sodium 141 mmol/L (136-145)
[2022-02-25 19:49] LABS: Bacteria/HPF 2+ HPF (None Seen)
[2022-02-25] MEDS ORDERED: Ketorolac Tromethamine 30 MG/ML VIAL ONE (20:48)
[2022-02-26 16:42] LABS: Chlamydia by PCR Not Detected (NotDetected); GC by PCR Not Detected (NotDetected)
== END 2022-02-25 20:55 | disposition home or self-care (01) ==
LOC: ERS 18:45
DX: N92.6 Irregular menstruation, unspecified (principal)
CPT/HCPCS: 36415; 80053; 81003; 81015; 84703; 85025; 87077; 87086; 87480; 87491; 87510; 87591; 87660; 93005; 96372; J1885

== ENCOUNTER 2023-12-06 17:59 | Emergency (ER) | payer MEDICARE, OTHER ==
[2023-12-06] MEDS ORDERED: Ondansetron ODT 4 MG TAB ONE (18:35)
[2023-12-06 18:42] LABS: Bilirubin Negative (Negative); Blood, Urine 3+ (Negative); CAUTI Indications for Culture Pelvic or flank pain; Clarity Turbid (Clear); Glucose, Urine (Dipstick) Normal (Negative); Ketone, Urine Trace mg/dL (Negative); Leukocyte 250 Leu/uL (Negative); Nitrite Negative (Negative); Protein, Urine (Dipstick) 50 mg/dL (Neg-Trace); RBC/HPF Greater than 50 HPF (0-3); Specific Gravity, Urine 1.035 (1.002-1.036)
[2023-12-06 18:48] LABS: Pregnancy Test - Urine (BHCG) Negative (Negative); Pregu Control Background? CLEAR/WHITE (CLR/WHITE); Pregu Control Bar Appear? YES (CONTROL BAR); Specific Gravity 1.035 (1.002-1.036)
[2023-12-06 18:50] LABS: Bacteria/HPF Rare-Few HPF (None Seen)
[2023-12-06 18:51] LABS: Urine Culture Reflex No No
== END 2023-12-06 19:16 | disposition home or self-care (01) ==
LOC: ERS 17:59
DX: N30.00 Acute cystitis without hematuria (principal); N94.6 Dysmenorrhea, unspecified
CPT/HCPCS: 81001; 81025; 87077; 87086; 99283; Q0162

== ENCOUNTER 2024-05-12 20:10 | Emergency (ER) | payer MEDICARE, MEDICAID ==
[2024-05-12] MEDS ORDERED: Acetaminophen 500 MG TAB ONE (22:08)
[2024-05-12] MEDS ORDERED: Ketorolac Tromethamine 30 MG (1 mL) VIAL ONE (22:09)
[2024-05-12 22:11] LABS: #Basophils Less than 0.03 10x3/uL (0.0-0.2); %Basophils 0.2 % (0.0-1.0); %Eosinophils 3.4 % (0.0-10.0); %Lymphocytes 25.4 % (21.0-51.0); %Monocytes 6.5 % (0.0-10.0); %Neutrophils 64.3 % (42.0-75.0); Hematocrit 38.7 % (36.0-47.0); Hemoglobin 12.2 g/dL (12.0-16.0); Mean Corpuscular HGB CONC 31.5 g/dL (32.0-36.0); Mean Platelet Volume 8.7 fL (7.4-10.4); Platelet Count 552 10x3/uL (130-400); RBC Distribution Width 17.3 % (11.5-14.5)
[2024-05-12 22:23] LABS: ALT (SGPT) 48 U/L (8-55); AST (SGOT) 29 U/L (5-34); Albumin 3.5 g/dL (3.5-5.0); Alkaline Phosphatase 59 U/L (40-110); Anion Gap 15 mmol/L (10-20); BUN (Urea Nitrogen) 11 mg/dL (7.0-18.7); Bilirubin, Total 0.5 mg/dL (0.2-1.2); Calc. Creatinine Clearance 0 mL/min (70-130); Calcium 8.9 mg/dL (7.8-10.44); Carbon Dioxide 22 mmol/L (22-29); Chloride 105 mmol/L (98-107); Estimated GFR 107; Globulin 3.7 g/dL (2.4-3.5); Glucose 88 mg/dL (70-105); Potassium 3.4 mmol/L (3.5-5.1); Protein, Total 7.2 g/dL (6.0-8.3); Sodium 139 mmol/L (136-145)
[2024-05-12 22:29] LABS: Troponin I Less than 0.010 ng/mL (< 0.028)
== END 2024-05-12 22:53 | disposition home or self-care (01) ==
LOC: ERS 20:10
DX: R51.9 Headache, unspecified (principal); R29.700 NIHSS score 0; Z60.9 Problem related to social environment, unspecified
CPT/HCPCS: 71046; 80053; 83880; 84484; 85025; 93005; 96372; 99285; J1885; 36415